=== PATIENT | male | born 1960 | race American Indian/Alaskan Native ===

== ENCOUNTER 2017-02-10 21:16 | Emergency (ER) | payer OTHER ==
[~2017-02-10] VITALS: Ht 177.8 cm; Wt 88.5 kg
[~2017-02-10 21:16] MED LIST: ADVIL200 MG PO; AUGMENTIN 875-1 EACH PO; COLACE100 MG PO; FLAGYL500 MG PO; IBUPROFEN800 MG PO; MULTI VITAMIN1 EACH PO; NORCO 5-325 TA1 EACH PO; OXYCODONE-ACET1 EAC1 PO
--- NOTE | 2017-02-12 13:33 | EKG ---
[facility] [address] [facility] [place] [address] Signed Sinus tachycardia Otherwise normal ECG No previous ECGs available Confirmed by CELY REDD MD ([id number]) on 02/12/2017 1:33:09 PM Electronically Signed By: CELY REDD MD 02/12/17 1333 PATIENT NAME: SHENA RAZA OSWALDO Electrocardiogram DATE OF : 64 PHYSICIAN: CELY REDD MD REPORT #: [id number] REPORT IS CONFIDENTIAL AND NOT TO BE RELEASED WITHOUT AUTHORIZATION
== END 2017-02-10 22:55 | disposition home or self-care (01) ==
LOC: ED 21:16
DX: R07.2 Precordial pain (principal); Z90.49 Acquired absence of other specified parts of digestive tract; Z88.2 Allergy status to sulfonamides; Z88.1 Allergy status to other antibiotic agents; Z87.891 Personal history of nicotine dependence
CPT/HCPCS: 71010; 80053; 84484; 85025; 85379; 93005; 93010; 99284

== ENCOUNTER 2020-06-11 07:55 | Day surgery (SDC) | payer OTHER ==
[~2020-06-11] VITALS: Ht 177.8 cm; Wt 97.0 kg
[~2020-06-11 07:55] MED LIST changes: +ASPIRIN81 MG PO; +DICLOFENAC POTA50 MG PO; +FENOFIBRATE160 MG PO; +GLUCOPHAGE500 MG PO; +MAGNESIUM400 MG PO; +TERBINAFINE HC250 MG PO; +TRULICITY0.75 MG/0. SQ; +VITAMIN D250 MC1 PO; +ZESTRIL5 MG PO
[2020-06-11] MEDS ORDERED: HYDROCODON-ACE1 EA11 PO (10:41)
--- NOTE | 2020-06-11 10:55 | NUR ---
06/11/20 1055 Reena Aguilar 1042 PT TO PACU SLEEPING O2 VIA MASK.
--- NOTE | 2020-06-11 11:19 | OR ---
[facility] [address] [facility] [place] [address] Signed DATE OF OPERATION: 06/11/2020 SURGEON: Eugenia Aguilar MD PREOPERATIVE DIAGNOSIS: Superior labral tear, left shoulder. POSTOPERATIVE DIAGNOSIS: Superior labral tear, left shoulder. PROCEDURE PERFORMED: Left shoulder arthroscopy with labral repair. SILVER MINER BLASTING: None. ANESTHESIA: General. BLOOD LOSS: 100 mL. IMPLANTS: 1.8 FiberTak anchor. BRIEF HISTORY: Edwardo is a 60-year-old gentleman with pain in the shoulder. MRI was consistent with superior labral tear. Risks and benefits of operative treatment were discussed with him after he failed nonoperative treatment. DESCRIPTION OF PROCEDURE: Once consent was obtained, he was taken to the operating room after adequate anesthesia. He was placed on the operating room table, all downside pressure points were well padded. He was placed in a beach chair position and the shoulder was prepped and draped in a standard sterile fashion. Shoulder was injected with 15 mL of 0.25% Marcaine with epinephrine as was the subacromial space. The standard posterior portal was made and the scope was introduced in the shoulder. ARTHROSCOPIC FINDINGS: The shoulder was noted to have severe synovitis throughout with surrounding and Electronically Signed By: EUGENIA AGUILAR MD 06/11/20 1119 PATIENT NAME: EDWARDO RAZA OSWALDO OPERATIVE REPORT DATE OF : 64 REPORT #: [id number] PHYSICIAN: EUGENIA AGUILAR MD PCP: [facility] REPORT IS CONFIDENTIAL AND NOT TO BE RELEASED WITHOUT AUTHORIZATION [facility] [address] [facility] [place] [address] Signed extremely friable areas of synovium. There was active bleeding with blood clot in the bottom of the shoulder joint. There was bloody induration of the labrum superiorly particularly just posterior to the biceps. The biceps itself was intact. The glenohumeral surfaces were intact. The rotator cuff was intact. Standard anterior portal was made using an anterior ppdzyo-zjo-rlodkol-in technique. The superior lateral portal was established with some difficulty. The glenoid was then debrided of soft tissue down to bleeding bony bed. The FiberTak anchor was then placed from superior lateral portal into the bone. It was then pulled on to tension it. The suture shuttle was then placed through the labrum just at the posterior edge of the biceps. This was then passed through and the blue-repaired suture was passed backwards. The blue-repaired suture was then brought back out the superior lateral cannula and using the suture shuttle on the FiberTak, it was shuttled through. It was then tensioned down until it was appropriately tightened. We had excellent fixation. The suture end was then cut and the labrum was found to be stable. We elected to place in a more anchors. The scope was withdrawn. Portals were closed with 3-0 nylon and the wounds were dressed with Acticoat 7 dressing. He tolerated the procedure well. All sponge, needle, and instrument counts were correct. Eugenia Aguilar MD BA/ADOREL /[id number] Copies: ~ Electronically Signed By: EUGENIA AGUILAR MD 06/11/20 1119 PATIENT NAME: EDWARDO RAZA OPERATIVE REPORT DATE OF : 64 REPORT #: [id number] PHYSICIAN: EUGENIA AGUILAR MD PCP: [facility] REPORT IS CONFIDENTIAL AND NOT TO BE RELEASED WITHOUT AUTHORIZATION
--- NOTE | 2020-06-11 11:30 | NUR ---
RESUMED CARE OF PATIENT, REPORT FROM RUBEN LOCKWOOD.
--- NOTE | 2020-06-11 12:15 | NUR ---
PATIENT SITTING UP IN BED, TOLERATING ICE WATER AND SNACKS. PATIENT THEN AMBULATED TO BATHROOM. VOIDED 500 ML OF YELLOW URINE. SHOULDER IMMOBILIZER IN PLACE. CRYO IN PLACE. DRESSING C/D/I. STRONG RADIAL AND ULNAR PULSE. PATIENT REPORTS NUMBNESS, NO PAIN OR NAUSEA. PATIENT WAS STEADY ON FEET WHEN AMBULATING IN [place]. VSS.
--- NOTE | 2020-06-11 13:00 | NUR ---
ASSISTED PATIENT WITH DRESSING. DRESSING CONTINUES TO APPEAR C/D/I. PROVIDED INSTRUCTION WITH SHOULDER IMMOBILIZER AND CRYO CUFF. PROVIDED DISCHARGE INSTRUCTION. READ OUT LOUD PRINTED INSTRUCTIONS FROM DR. MURRELL OFFICE. PATIENT SIGNED AND VERBALIZED UNDERSTANDING. PROVIDED PATIENT WITH WHEELCHAIR RIDE TO FRONT. PATIENT TRANSFERED INTO CAR WELL AND LEFT WITH HIS MOM.
== END 2020-06-11 13:34 | disposition home or self-care (01) ==
LOC: DS 07:55
PROVIDERS: ATTEND Specialist
PROC: 0MM24ZZ Reattachment of Left Shoulder Bursa and Ligament, Percutaneous Endoscopic Approach (ICD-10-PCS; principal; 2020-06-11 09:30)
DX: S43.432A Superior glenoid labrum lesion of left shoulder, initial encounter (principal); G89.18 Other acute postprocedural pain; I10 Essential (primary) hypertension; E11.9 Type 2 diabetes mellitus without complications; Z88.1 Allergy status to other antibiotic agents; Z87.891 Personal history of nicotine dependence; Z79.82 Long term (current) use of aspirin; Z88.2 Allergy status to sulfonamides; Z79.899 Other long term (current) drug therapy; Z79.84 Long term (current) use of oral hypoglycemic drugs; X58.XXXA Exposure to other specified factors, initial encounter
CPT/HCPCS: 00450; 64415; 76942; C1713; J0690; J1100; J2001; J2250; J2405; J2704; J2795; J3010; J7121

== ENCOUNTER 2022-03-21 08:32 | Day surgery (SDC) | payer OTHER ==
[~2022-03-21] VITALS: Ht 177.8 cm; Wt 91.8 kg
[~2022-03-21 08:32] MED LIST changes: +HYDROCODON-ACE1 EA11 PO
[2022-03-21] MEDS ORDERED: OZEMPIC1 MG/0.71 SUB-Q (08:53)
--- NOTE | 2022-03-21 10:21 | NUR ---
03/21/22 1021 Reena Aguilar 1009 PT TO PACU AWAKE AND TALKING DENIES PAIN, PT ROLLED ON TO HIS BACK AND FELL ASLEEP SOUNDLY.
--- NOTE | 2022-03-21 16:33 | OR ---
[facility] [address] [place], [place] [address] Signed DATE OF OPERATION: 03/21/2022 SURGEON: Rich Bernal MD PREOPERATIVE DIAGNOSES: 1. Screening. 2. Possible history of colonic polyps in his mother. POSTOPERATIVE DIAGNOSES: 1. Minimal to moderate sigmoid diverticulosis. 2. 4 mm polyp at 8 cm. PROCEDURE: Colonoscopy with cold biopsy. ESTIMATED BLOOD LOSS: None. INDICATIONS: Edwardo is a 62-year-old gentleman, asked to see me for his initial screening colonoscopy. He thinks maybe his mother had colonic polyps removed. He forgot to ask her in that regard. He has no lower GI complaints. In the office, I gave Edwardo the pamphlet on colonoscopy. We reviewed the nature of the test. There is risk including, but not limited to gas bloating, crampy abdominal pain, bleeding, perforation requiring surgery, and missed diagnosis. We also reviewed the need for IV conscious sedation. He had expressed understanding and wished to proceed. PROCEDURE NOTE: Edwardo was taken into our endoscopy suite and given 8 mg of Versed and 150 mcg of fentanyl to cover the case. He was mildly awake a few times and we stopped and gave more sedation. A digital rectal exam was done and this was unremarkable. He had good sphincter tone and no external hemorrhoids. There were no masses. The adult colonoscope was introduced and advanced all around into the cecum under direct visualization of the camera. It took extra sedation, abdominal compression and rotating Edwardo in the supine position and back in the left lateral decubitus position in order to get the scope down into the cecum itself. His prep was quite good. We could easily see the appendiceal orifice and ileocecal valve. The scope was slowly withdrawn. We took pictures throughout for photodocumentation. He does have diverticulosis in the left colon. They were minimal to moderate in size, minimal to moderate in number, and scattered about. At 8 cm in the rectum, he had a small 4 mm polyp. It was easily Electronically Signed By: RICH BERNAL MD 03/21/22 1633 PATIENT NAME: EDWARDO RAZA OPERATIVE REPORT DATE OF : 64 REPORT #: [id number] PHYSICIAN: RICH BERNAL MD PCP: [facility] REPORT IS CONFIDENTIAL AND NOT TO BE RELEASED WITHOUT AUTHORIZATION [address] [address] Signed removed with a cold biopsy forceps. Upon retroflexion of the scope, there was no additional pathology noted above the anal canal. After this, the gas was suctioned out and the colonoscope removed. Edwardo tolerated the procedure quite well. RECOMMENDATIONS: I will see Edwardo back in my office in 7 to 14 days to review his results. MD DENISA Ortiz/ADOREL /[id number] cc: Rich Bernal MD [facility] Copies: RICH BERNAL MD ~ Electronically Signed By: RICH BERNAL MD 03/21/22 1633 PATIENT NAME: EDWARDO RAZA OSWALDO OPERATIVE REPORT DATE OF : 64 REPORT #: [id number] PHYSICIAN: RICH BERNAL MD PCP: [facility] REPORT IS CONFIDENTIAL AND NOT TO BE RELEASED WITHOUT AUTHORIZATION
== END 2022-03-21 11:00 | disposition home or self-care (01) ==
LOC: OPS 08:32 → DS 08:33 → OPS 09:45
PROVIDERS: ATTEND Colon & Rectal Surgery
PROC: 0DBP8ZZ Excision of Rectum, Via Natural or Artificial Opening Endoscopic (ICD-10-PCS; principal; 2022-03-21 09:45)
DX: Z12.11 Encounter for screening for malignant neoplasm of colon (principal); Z83.71 Family history of colonic polyps; E11.9 Type 2 diabetes mellitus without complications; I10 Essential (primary) hypertension; K57.30 Diverticulosis of large intestine without perforation or abscess without bleeding; K63.5 Polyp of colon
CPT/HCPCS: 99153; G0500; J2250; J3010; J7121